=== PATIENT | male | born 1955 | race African-American/Black ===

== ENCOUNTER 2021-06-12 16:31 | Emergency (ER) | payer MEDICAID ==
--- NOTE | 2021-06-12 18:16 | ED Physician Documentation ---
PD HPI HEADACHE - Stated complaint Stated Complaint: DIZZY/HEAD PX - Chief complaint Chief Complaint: General - History obtained from History obtained from: Patient - History of Present Illness Timing - onset: How many days ago (few) Timing - onset during: Light activity Timing - duration: Days (has been out of meds for a week or so and has noted some pressure headache c/w high BP. He was [place] able [place]. Here for eval Tried calling local clinic but no appts until few weeks.) Timing - details: Gradual onset, Waxing and waning Worst headache ever?: No: Worst headache ever? Location: Front, Global Quality: Throbbing Associated symptoms: No: Fever, Stiff neck, Nausea, Vomiting, Weakness, Numbness, Eye pain Contributing factors: Hypertension (ran out of meds a week ago). No: Recent illness Similar symptoms before: Diagnosis (HTN) Recently seen: Clinic (few months ago - recently moved to located within [facility]) Review of Systems Constitutional: denies: Fever, Chills Eyes: denies: Loss of vision, Decreased vision Nose: denies: Rhinorrhea / runny nose, Congestion Throat: denies: Sore throat Cardiac: denies: Chest pain / pressure Respiratory: denies: Dyspnea, Cough Neurologic: reports: Headache. denies: Focal weakness, Numbness, Confused, Altered mental status PD PAST MEDICAL HISTORY - Past Medical History Cardiovascular: Hypertension Respiratory: None Neuro: None Endocrine/Autoimmune: None - Present Medications Home Medications: Ambulatory Orders Medication Instructions Recorded Confirmed Losartan [Cozaar] 50 mg PO DAILY #30 tablet 06/12/21 Losartan [Cozaar] mg PO DAILY 06/12/21 amLODIPine [Norvasc] 10 mg PO DAILY #30 tablet 06/12/21 amLODIPine [Norvasc] mg PO DAILY 06/12/21 - Allergies Allergies/Adverse Reactions: Allergies Allergy/AdvReac Type Severity Reaction Status Date / Time No Known Drug Allergies Allergy Verified 06/12/21 16:37 PD ED PE NORMAL - Vitals Vital signs reviewed: Yes - General General: Alert and oriented X 3, No acute distress, Well developed/nourished - Cardiac Cardiac: RRR, No murmur - Respiratory Respiratory: Clear bilaterally - Derm Derm: Normal color, Warm and dry - Extremities Extremities: No edema, No calf tenderness / cord - Neuro Neuro: Alert and oriented X 3, No motor deficit, Normal speech Results - Vitals Vitals: Oxygen O2 Source Room air PD MEDICAL DECISION MAKING - ED course Complexity details: reviewed results (was going to check basic chemistry/renal function, but patient says had labs few months ago and "hates needles", so shared decision to forego. I presume new PMD will want basic labs in the next month or so anyway. ), considered differential (mild pressure headache that he relates to BP being elevated.), d/w patient Departure - Departure Disposition: Home, Self Care Clinical Impression: Headache, Hypertension, No mechanism for timely refill of medication Condition: Stable Record reviewed to determine appropriate education?: Yes Instructions: ED HTN Established Prescriptions: Losartan [Cozaar] 50 mg PO DAILY #30 tablet amLODIPine [Norvasc] 10 mg PO DAILY #30 tablet Comments: Stay well-hydrated. Low-salt diet. Tylenol if needed for headaches. Resume your usual blood pressure medicines of losartan and amlodipine. Follow- up with the new primary care in June as scheduled. Return if needed. Discharge Date/Time: 06/12/21 19:05
[2021-06-12] MEDS ORDERED: amLODIPine 5 MG TABLET PO STA (18:43)
[2021-06-12] MEDS ORDERED: ACETAMINOPHEN 325 MG TABLET PO STA (18:43)
[2021-06-12] MEDS ORDERED: LOSARTAN 50 MG TABLET PO STA (18:55)
[2021-06-12 19:03] VITALS: BP 166/95
[2021-06-13] MEDS ORDERED: LOSARTAN 50 MG TABLET PO SCH (09:00)
== END 2021-06-12 19:05 | disposition home or self-care (01) ==
LOC: ED 16:31
DX: R51.9 Headache, unspecified (principal); I10 Essential (primary) hypertension; T50.996A Underdosing of other drugs, medicaments and biological substances, initial encounter; Z91.138 Patient's unintentional underdosing of medication regimen for other reason
CPT/HCPCS: 99282; 99283; A9270; 80053; 83690

== ENCOUNTER 2021-11-20 10:20 | Outpatient (CLI) | payer MEDICAID ==
[2021-11-20 15:12] LABS: EOSINOPHILS # (AUTO) 0.1 10^3/uL (0.0-0.7); EOSINOPHILS % (AUTO) 3.5 %; HGB - HEMOGLOBIN 15.7 g/dL (14.0-18.0); LYMPHOCYTES # (AUTO) 1.6 10^3/uL (1.5-3.5); MEAN CORPUSCULAR HEMOGLOBIN 27.7 pg (27.0-31.0); MEAN CORPUSCULAR HGB CONC 34.9 g/dL (32.0-36.0); MEAN CORPUSCULAR VOLUME 79.4 fL (80.0-94.0); MEAN PLATELET VOLUME 10.5 fL (7.4-11.4); MONOCYTES # (AUTO) 0.3 10^3/uL (0.0-1.0); MONOCYTES % (AUTO) 8.1 %; NEUTROPHILS # (AUTO) 1.9 10^3/uL (1.5-6.6); NEUTROPHILS % (AUTO) 48.1 %; PLT - PLATELET COUNT 190 10^3/uL (130-450); RED BLOOD COUNT 5.67 10^6/uL (4.70-6.10); RED CELL DISTRIBUTION WIDTH 13.3 % (12.0-15.0)
[2021-11-20 15:42] LABS: ALBUMIN 3.9 g/dL (3.2-5.5); ALBUMIN/GLOBULIN RATIO 1.1 (1.0-2.2); ALKALINE PHOSPHATASE 52 IU/L (42-121); ALT ALANINE AMINOTRANSFERASE 14 IU/L (10-60); AST ASPARTATE AMINOTRANSFERASE 18 IU/L (10-42); BUN - BLOOD UREA NITROGEN 18 mg/dL (6-20); CARBON DIOXIDE - CO2 27 mmol/L (21-32); CHLORIDE 102 mmol/L (101-111); CHOL/HDL RATIO 3.1 (<5.0); CHOLESTEROL 168 mg/dL; CREATININE 1.3 mg/dL (0.6-1.2); GFR - MDRD 67 (>89); GLUCOSE 103 mg/dL (70-100); HDL CHOLESTEROL 55 mg/dL; LDL CHOLESTEROL,CALCULATED 96 mg/dL; LDL/HDL RATIO 1.7 (<3.6); POTASSIUM 3.5 mmol/L (3.5-5.0); SODIUM 139 mmol/L (135-145); TOTAL PROTEIN 7.3 g/dL (6.7-8.2); TRIGLYCERIDES 86 mg/dL; VLDL CHOLESTEROL 17 mg/dL
[2021-11-20 15:43] LABS: FECAL OCCULT BLOOD (FIT) NEGATIVE (NEGATIVE)
[2021-11-20 16:20] LABS: THYROID STIMULATING HORMONE 3.11 uIU/mL (0.34-5.60)
== END 2021-11-20 10:21 | disposition home or self-care (01) ==
LOC: LAB.S 10:20
PROVIDERS: ATTEND Registered Nurse
DX: K21.9 Gastro-esophageal reflux disease without esophagitis (principal); R13.10 Dysphagia, unspecified; I10 Essential (primary) hypertension; Z12.11 Encounter for screening for malignant neoplasm of colon; Z12.5 Encounter for screening for malignant neoplasm of prostate
CPT/HCPCS: 36415; 80053; 80061; 82274; 83721; 84153; 84443; 85025

== ENCOUNTER 2022-02-14 09:12 | Outpatient (CLI) | payer MEDICARE, MEDICAID ==
--- NOTE | 2022-02-14 10:11 | Ultrasound Report ---
PROCEDURE: Aorta Screening INDICATIONS: HIST OF SMOKING TECHNIQUE: Real time scanning was performed of the aorta and iliac arteries, with image documentatio n. COMPARISON: None FINDINGS: Aorta: Proximal aortic diameter measures 2.2 x 2.2 cm. Mid-aorta measures 2.1 x 2.3 cm. Distal aor tic diameter is 1.8 x 1.9 cm. Iliac arteries: Right common iliac artery measures 1.3 x 1.4 cm. Left common iliac artery measures 1.4 x 1.4 cm. IMPRESSION: No abdominal aortic aneurysm. Reviewed by: Eduardo Montana MD on 02/14/2022 10:10 AM PDT Approved by: Eduardo Montana MD on 02/14/2022 10:10 AM PDT Station ID: [id number]
== END 2022-02-14 09:13 | disposition home or self-care (01) ==
LOC: DI 09:12
PROVIDERS: ATTEND Registered Nurse
DX: Z13.6 Encounter for screening for cardiovascular disorders (principal); Z87.891 Personal history of nicotine dependence

== ENCOUNTER 2022-06-23 09:34 | Day surgery (SDC) | payer MEDICARE, MEDICAID ==
[2022-06-23] MEDS ORDERED: ONDANSETRON 4 MG/2 ML VIAL IVP STA (10:40)
[2022-06-23] MEDS ORDERED: SODIUM CHLORIDE 0.9% 1,000 ML IV STA ×2 (10:40→19:10)
[2022-06-23 10:55] LABS: EOSINOPHILS # (AUTO) 0.1 10^3/uL (0.0-0.7); EOSINOPHILS % (AUTO) 3.2 %; HCT - HEMATOCRIT 42.8 % (42.0-52.0); HGB - HEMOGLOBIN 14.9 g/dL (14.0-18.0); LYMPHOCYTES # (AUTO) 0.9 10^3/uL (1.5-3.5); LYMPHOCYTES % (AUTO) 28.3 %; MEAN CORPUSCULAR HEMOGLOBIN 28.2 pg (27.0-31.0); MEAN CORPUSCULAR HGB CONC 34.8 g/dL (32.0-36.0); MEAN CORPUSCULAR VOLUME 81.1 fL (80.0-94.0); MONOCYTES # (AUTO) 0.3 10^3/uL (0.0-1.0); MONOCYTES % (AUTO) 10.2 %; NEUTROPHILS # (AUTO) 1.8 10^3/uL (1.5-6.6); PLT - PLATELET COUNT 169 10^3/uL (130-450); RED BLOOD COUNT 5.28 10^6/uL (4.70-6.10); RED CELL DISTRIBUTION WIDTH 13.2 % (12.0-15.0); WHITE BLOOD COUNT 3.2 x10^3/uL (4.8-10.8)
[2022-06-23 11:08] LABS: ALBUMIN 3.9 g/dL (3.2-5.5); ALBUMIN/GLOBULIN RATIO 1.3 (1.0-2.2); BILIRUBIN,TOTAL 0.9 mg/dL (0.2-1.0); CALCIUM 9.3 mg/dL (8.5-10.3); CREATININE 1.2 mg/dL (0.6-1.2); POTASSIUM 3.5 mmol/L (3.5-5.0); TOTAL PROTEIN 6.8 g/dL (6.7-8.2)
--- NOTE | 2022-06-23 12:16 | CT Report ---
PROCEDURE: CHEST W INDICATIONS: dysphagia/can't pass anything CONTRAST: IV CONTRAST: Optiray 320 ml: 100 PO CONTRAST: *NO PO CONTRAST TECHNIQUE: After the administration of intravenous contrast, 1 mm axial images were acquired from the pulmonary apices through the posterior costophrenic angles. Axial 5 mm soft tissue kernel reconstructions were performed as well as 8 mm axial MIP and coronal and sagittal 5 mm reformations. For radiation dose reduction, the following was used: automated exposure control, adjustment of mA and/or kV according to patient size. COMPARISON: CT abdomen pelvis 06/23/2022 FINDINGS: Image quality: Excellent. Lungs and pleura: No acute air space opacities. No pleural effusions or pneumothorax. Central and peripheral airways are patent and normal in caliber. Mediastinum: Heart size is normal. No pericardial effusion. No mediastinal or hilar adenopathy by size criteria. Thoracic aorta and central pulmonary arteries are normal in size. Esophagus is michael l in caliber. No hiatal hernia. Bones and chest wall: No suspicious bony lesions. No vertebral body compression fractures. No axil gay or supraclavicular adenopathy by size criteria. The thyroid is normal in size and there are no incidental findings.. Abdomen: Simple right renal cyst. Otherwise, visualized upper abdominal solid organs appear normal. Upper abdominal bowel loops are normal in caliber. IMPRESSION: No visualized esophageal mass. If concern persists, a endoscopy is recommended. CLINICAL RECOMMENDATION STATEMENTS: In patients <35 years with an ITN detected on CT, MRI, or extrathyroidal ultrasound, the Committee re commends further evaluation with dedicated thyroid ultrasound if the nodule is "e1 cm and has no susp icious imaging features, and if the patient has normal life expectancy. In patients "e35 years with an ITN detected on CT, MRI, or extrathyroidal ultrasound, the Committee r ecommends further evaluation with dedicated thyroid ultrasound if the nodule is "e1.5 cm and has no s uspicious imaging features, and if the patient has normal life expectancy. (ACR, 2014) Reviewed by: Ruth Encinas MD on 06/23/2022 12:15 PM PDT Approved by: Ruth Encinas MD on 06/23/2022 12:15 PM PDT Station ID: [id number]
--- NOTE | 2022-06-23 12:18 | CT Report ---
PROCEDURE: Abdomen/Pelvis W INDICATIONS: dysphagia/vomiting/can't pass food or water CONTRAST: IV CONTRAST: Optiray 320 ml: 100 PO CONTRAST: *NO PO CONTRAST TECHNIQUE: After the administration of intravenous contrast, 5 mm thick sections acquired from the diaphragms to the symphysis. 5 mm thick coronal and sagittal reformats were acquired. For radiation dose reducti on, the following was used: automated exposure control, adjustment of mA and/or kV according to sb ent size. COMPARISON: CT chest 06/23/2022. FINDINGS: Image quality: Excellent. ABDOMEN: Lung bases: Lung bases are clear. Heart size is normal. Solid organs: Liver and spleen are normal in size and enhancement. Hepatic steatosis. Gallbladder i s unremarkable. Biliary system is non dilated. Pancreas enhances normally. 3 mm calcified nodule wi thin the medial right adrenal gland. Kidneys demonstrate normal size and enhancement, without hydrone phrosis. Simple right renal cyst. Peritoneum and bowel: Bowel loops demonstrate normal wall thickness and caliber. No free fluid or a ir. Nodes and vessels: No retroperitoneal or mesenteric adenopathy by size criteria. Aorta and inferior vena cava are normal in size. Miscellaneous: No ventral hernias. PELVIS: Genitourinary: Bladder wall thickness is normal. Miscellaneous: No inguinal hernias or adenopathy. Bones: No suspicious bony lesions. No vertebral body compression fractures. IMPRESSION: No visualized esophageal mass. No obstruction. Reviewed by: Ruth Encinas MD on 06/23/2022 12:17 PM PDT Approved by: Ruth Encinas MD on 06/23/2022 12:17 PM PDT Station ID: [id number]
--- NOTE | 2022-06-23 13:35 | ED Physician Documentation ---
PD HPI ABD PAIN - Stated complaint Stated Complaint: UNABLE TO SWALLO - Chief complaint Chief Complaint: Abd Pain - History obtained from History obtained from: Patient - Additional information Additional information: The patient comes to the emergency department chief complaint of inability to pass food or liquids by mouth over the past month. The patient initially just had delayed passage of solids and liquids and would have some discomfort in his lower chest but for like things ultimately passed through. However, this is gotten increasingly difficult until now, the patient states for the past 3 days he cannot get any food or fluid down. He states he gets a strong cramping discomfort in his lower central chest and then everything comes right back out. He states that he has been becoming weaker and has lost "a lot" of weight over the last month though he is not sure exactly how much. He states this is because he has hardly been able to eat anything. The patient states that he was otherwise the same way as usual before this started. He denies any vomiting in between attempts to eat or drink. He denies any history of heavy, regular drinking of alcohol and denies smoking. He states that he has not had any black stools or blood in his vomit. No other complaints at this time. Review of Systems Ten Systems: 10 systems reviewed and negative Constitutional: reports: Reviewed and negative Eyes: reports: Reviewed and negative Ears: reports: Reviewed and negative Nose: reports: Reviewed and negative Throat: reports: Reviewed and negative Cardiac: reports: Chest pain / pressure Respiratory: reports: Reviewed and negative GI: reports: Vomiting, Reviewed and negative : reports: Reviewed and negative Skin: reports: Reviewed and negative Musculoskeletal: reports: Reviewed and negative Neurologic: reports: Reviewed and negative Psychiatric: reports: Reviewed and negative Endocrine: reports: Reviewed and negative Immunocompromised: reports: Reviewed and negative PD PAST MEDICAL HISTORY - Past Medical History Cardiovascular: Hypertension Respiratory: None Neuro: None Endocrine/Autoimmune: None GI: GERD : Other HEENT: None Psych: None Musculoskeletal: None Derm: None - Past Surgical History Past Surgical History: Yes - Present Medications Home Medications: Ambulatory Orders Medication Instructions Recorded Confirmed Losartan [Cozaar] 50 mg PO DAILY #30 tablet 06/12/21 Losartan [Cozaar] mg PO DAILY 06/12/21 amLODIPine [Norvasc] 10 mg PO DAILY #30 tablet 06/12/21 amLODIPine [Norvasc] mg PO DAILY 06/12/21 - Allergies Allergies/Adverse Reactions: Allergies Allergy/AdvReac Type Severity Reaction Status Date / Time No Known Drug Allergies Allergy Verified 06/23/22 09:49 - Social History Does the pt smoke?: No Smoking Status: Never smoker Does the pt drink ETOH?: Yes Does the pt have substance abuse?: No - Immunizations Immunizations are current?: Yes PD ED PE NORMAL - Vitals Vital signs reviewed: Yes - General General: Alert and oriented X 3, No acute distress, Well developed/nourished - HEENT HEENT: Atraumatic, PERRL, EOMI, Moist mucous membranes - Neck Neck: Supple, no meningeal sign - Cardiac Cardiac: RRR, No murmur, Strong equal pulses - Respiratory Respiratory: No respiratory distress, Clear bilaterally - Abdomen Abdomen: Soft, Non distended, Other (Mild epigastric tenderness, no rebound or guarding) - Derm Derm: Normal color, Warm and dry, No rash - Extremities Extremities: No deformity, No edema - Neuro Neuro: Alert and oriented X 3 - Psych Psych: Normal mood, Normal affect Results - Vitals Vitals: Vital Signs - 24 hr 06/24/22 06/24/22 06/24/22 11:18 13:00 15:00 Temperature Heart Rate 55 L 56 L 56 L Respiratory 14 16 18 Rate Blood Pressure 145/89 H 135/86 H 142/87 H O2 Saturation 100 100 100 06/24/22 06/24/22 06/24/22 17:00 19:00 20:16 Temperature Heart Rate 48 L 70 58 L Respiratory 18 16 11 L Rate Blood Pressure 165/85 H 116/79 150/82 H O2 Saturation 100 99 100 06/24/22 06/24/22 06/24/22 21:00 22:00 23:00 Temperature 36.6 C Heart Rate 56 L 50 L 55 L Respiratory 14 14 14 Rate Blood Pressure 143/86 H 138/80 H 145/84 H O2 Saturation 100 98 99 06/25/22 06/25/22 06/25/22 01:00 03:00 05:00 Temperature 36.6 C Heart Rate 61 59 L 61 Respiratory 16 18 16 Rate Blood Pressure 149/84 H 146/87 H 147/86 H O2 Saturation 99 100 100 Oxygen O2 Source Room air - Labs Labs: Laboratory Tests 09/04/22 09/04/22 09/04/22 10:50 10:50 14:42 WBC 3.2 L RBC 5.28 Hgb 14.9 Hct 42.8 MCV 81.1 MCH 28.2 MCHC 34.8 RDW 13.2 Plt Count 169 MPV 10.0 Neut # (Auto) 1.8 Lymph # (Auto) 0.9 L Bullock # (Auto) 0.3 Eos # (Auto) 0.1 Baso # (Auto) 0.0 Absolute Nucleated RBC 0.00 Nucleated RBC % 0.0 Sodium 142 Potassium 3.5 Chloride 107 Carbon Dioxide 26 Anion Gap 9.0 BUN 19 Creatinine 1.2 Estimated GFR (MDRD) 73 L Glucose 90 Calcium 9.3 Magnesium Total Bilirubin 0.9 AST 17 ALT 13 Alkaline Phosphatase 49 Total Protein 6.8 Albumin 3.9 Globulin 2.9 Albumin/Globulin Ratio 1.3 Lipase 28 TSH Nasal Adenovirus (PCR) NOT DETECTED Nasal B. parapertussis DNA (PCR) NOT DETECTED Nasal Coronavir 229E PCR NOT DETECTED Nasal Coronavir HKU1 PCR NOT DETECTED Nasal Coronavir NL63 PCR NOT DETECTED Nasal Coronavir OC43 PCR NOT DETECTED Nasal Enterovir/Rhinovir PCR NOT DETECTED Nasal Influenza B PCR NOT DETECTED Nasal Influenza A PCR NOT DETECTED Nasal Parainfluen 1 PCR NOT DETECTED Nasal Parainfluen 2 PCR NOT DETECTED Nasal Parainfluen 3 PCR NOT DETECTED Nasal Parainfluen 4 PCR NOT DETECTED Nasal RSV (PCR) NOT DETECTED Nasal B.pertussis DNA PCR NOT DETECTED Nasal C.pneumoniae (PCR) NOT DETECTED Brice Human Metapneumo PCR NOT DETECTED Nasal M.pneumoniae (PCR) NOT DETECTED Nasal SARS-CoV-2 (PCR) NOT DETECTED 06/24/22 06/24/22 08:46 08:46 WBC RBC Hgb Hct MCV MCH MCHC RDW Plt Count MPV Neut # (Auto) Lymph # (Auto) Bullock # (Auto) Eos # (Auto) Baso # (Auto) Absolute Nucleated RBC Nucleated RBC % Sodium 143 Potassium 3.3 L Chloride 109 Carbon Dioxide 26 Anion Gap 8.0 BUN 18 Creatinine 1.2 Estimated GFR (MDRD) 73 L Glucose 81 Calcium 8.5 Magnesium 1.9 Total Bilirubin AST ALT Alkaline Phosphatase Total Protein Albumin Globulin Albumin/Globulin Ratio Lipase TSH 1.15 Nasal Adenovirus (PCR) Nasal B. parapertussis DNA (PCR) Nasal Coronavir 229E PCR Nasal Coronavir HKU1 PCR Nasal Coronavir NL63 PCR Nasal Coronavir OC43 PCR Nasal Enterovir/Rhinovir PCR Nasal Influenza B PCR Nasal Influenza A PCR Nasal Parainfluen 1 PCR Nasal Parainfluen 2 PCR Nasal Parainfluen 3 PCR Nasal Parainfluen 4 PCR Nasal RSV (PCR) Nasal B.pertussis DNA PCR Nasal C.pneumoniae (PCR) Brice Human Metapneumo PCR Nasal M.pneumoniae (PCR) Nasal SARS-CoV-2 (PCR) - Rads (name of study) CT chest Radiology: Final report received, EMP read indepedently, See rad report (No acute finding) CT abdomen pelvis Radiology: Final report received, EMP read indepedently, See rad report (No acute findings) PD MEDICAL DECISION MAKING - ED course Complexity details: reviewed results, re-evaluated patient, considered differential, d/w patient ED course: The patient was worked up with laboratory studies which were unremarkable. CT scans of the chest abdomen and pelvis were also unremarkable. I did try a p.o. challenge with clear liquid in the emergency department and the patient within seconds of swallowing was regurgitating the same liquid back up in its entirety. I spoke with Dr. Aguayo of surgery to see if it would be possible to work this patient up here and he stated he could and would be willing to do an endoscopy and a G-tube if needed. Of course, swallow study would also need to be done as per this patient's work-up. I then spoke with Dr. Washington who was hospitalist on duty and she stated that the patient did not meet admission criteria because he did not have any vital sign abnormalities and could simply be sent home with an NG tube and instructed as to how to hydrate and feed himself with liquid solutions. She stated we do not have the capability for swallow study because we do not have a C arm. We also do not have a speech pathologist here which creates also a less ideal situation as far as swallow evaluation. At this point in time, the pt is in the ED, awaiting transfer, as discharge home for this pt who cannot eat or drink, and has no primary care or assistance at home is not appropriate. Likelihood of timely follow up for this patient as an outpatient in primary care, much less with a custodial services manager, is very low, as is likelihood of pt to manage tube feeds on his own at home with no support. He has been bolused with NS, then placed on maintenance fluids. NGT was placed, but very poorly tolerated by the pt, who was perpetually nauseated with the tube in place. As such, the tube has been removed at pt's request, since we are providing IV therapy. Pt is signed out to Dr. Mendes at change of shift, pending acceptance at a facility with higher level of care. 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
--- NOTE | 2022-06-23 15:30 | XRAY Report ---
PROCEDURE: Chest 1 View X-Ray INDICATIONS: confirm NGT placement TECHNIQUE: One view of the chest was acquired. COMPARISON: Chest x-ray 06/23/2022 FINDINGS: Surgical changes and devices: Nasogastric tube is present projecting below the left hemidiaphragm. Lungs and pleura: No pleural effusions or pneumothorax. Lungs are clear. Mediastinum: Mediastinal contours appear normal. Heart size is normal. Bones and chest wall: No suspicious bony lesions. Overlying soft tissues appear unremarkable. IMPRESSION: Nasogastric tube as above. Reviewed by: Ruth Encinas MD on 06/23/2022 3:29 PM PDT Approved by: Ruth Encinas MD on 06/23/2022 3:29 PM PDT Station ID: [id number]
[2022-06-23 15:41] LABS: B. PARAPERTUSSIS- RESP PCR PAN NOT DETECTED; B. PERTUSSIS- RESP PCR PANEL NOT DETECTED; C. PNEUMONIAE- RESP PCR PANEL NOT DETECTED; CORONAVIRUS 229E-RESP PCR NOT DETECTED; CORONAVIRUS HKU1-RESP PCR NOT DETECTED; CORONAVIRUS NL63-RESP PCR NOT DETECTED; CORONAVIRUS OC43-RESP PCR NOT DETECTED; HUMAN METAPNEUMOVIRUS NOT DETECTED; INFLUENZA A- RESP PCR PANEL NOT DETECTED; INFLUENZA B - RESP PCR PANEL NOT DETECTED; M. PNEUMONIAE- RESP PCR PANEL NOT DETECTED; PARAINFLUENZA VIRUS 1 NOT DETECTED; PARAINFLUENZA VIRUS 2 NOT DETECTED; PARAINFLUENZA VIRUS 3 NOT DETECTED; PARAINFLUENZA VIRUS 4 NOT DETECTED; RHINOVIRUS/ENTEROVIRUS NOT DETECTED; RSV- RESP PCR PANEL NOT DETECTED; SARS-CoV-2 -RESP PCR PANEL NOT DETECTED
[2022-06-24] MEDS ORDERED: SODIUM CHLORIDE 0.9% 1,000 ML IV STA (03:07)
[2022-06-24] MEDS ORDERED: LACTATED RINGERS 1,000 ML IV STA ×2 (08:36→18:33)
[2022-06-24] MEDS ORDERED: PANTOPRAZOLE 40 MG VIAL IVP STA (08:36)
[2022-06-24 09:06] LABS: CALCIUM 8.5 mg/dL (8.5-10.3); CREATININE 1.2 mg/dL (0.6-1.2); MAGNESIUM 1.9 mg/dL (1.7-2.8); POTASSIUM 3.3 mmol/L (3.5-5.0)
[2022-06-24] MEDS ORDERED: SODIUM CHLORIDE FLUSH 0.9% 10 ML SYRINGE IVP PRN ×2 (14:44→15:31)
--- NOTE | 2022-06-24 15:00 | CONSULTATION NOTE ---
Referring Provider Name of Referring Provider:: Mark Consult Date: 06/24/22 Chief Complaint - Chief Complaint Chief Complaint: Inability to swallow History of Present Illness - Admitted From Admitted From:: ED - History Obtained From Records Reviewed: yes History obtained from: Patient Exam Limitations: None - History of Present Illness HPI Comment/Other: Merlin is a 67 year old male who has had progressive dysphagia for the last 6 weeks starting with solid food intolerance and progressing to the inability to swallow liquids over the last several days. He admits to a significant weight loss over this period. He denies chest or abdominal pain, but had a disturbing sensation of the failure of passage of weight he swallows into his stomach. On occasion he has regurgitated solid food and more recently, liquids that he attempted to swallow. He came to the ED yesterday and plans are in play for him to be transferred to another facility with the capacity to evaluate his symptoms with endoscopy and/or contrast x-ray. During his wait for an accepting facility (none have responded yet) he has been resting comfortably in the ED with hydration using an IV. He is able to swallow his secretions but nothing else. He has not aspirated. Merlin claims to have used Tums in the past for GERD but has never been evaluated for this disease process. He used to smoke cigarettes. There is no FH of GI problems in his family. This facility does not have the ability to perform an UGI x-ray this weekend. History - Past Medical History Cardiovascular: reports: Hypertension Respiratory: reports: None Neuro: reports: None Endocrine/Autoimmune: reports: None, Other (Weight loss) GI: reports: GERD, Other (Inability to swallow liquids) : reports: Other (Prostate Surgery) HEENT: reports: None Psych: reports: None Musculoskeletal: reports: None Derm: reports: None MRSA Hx?: No - Past Surgical History /BUSINESS ASST: reports: Other (Prostatectomy) - Family & Social History Family History: Other family: Alive and Well (Lives with daughter) Living arrangement: At home Living Situation: With family - Substance History Use: Uses substance without health or social issues: Tobacco, Cannabis Abuse: Recurrent use of substance despite neg consequences: NONE Dependence: Experiences withdrawal or developed tolerances: NONE Tobacco Details: Cigarettes - POLST Patient has POLST: No POLST Status: Full Code Meds/Allgy - Home Medications Home Medications: Ambulatory Orders Medication Instructions Recorded Confirmed Losartan [Cozaar] 50 mg PO DAILY #30 tablet 06/12/21 Losartan [Cozaar] mg PO DAILY 06/12/21 amLODIPine [Norvasc] 10 mg PO DAILY #30 tablet 06/12/21 amLODIPine [Norvasc] mg PO DAILY 06/12/21 - Allergies Allergies/Adverse Reactions: Allergies Allergy/AdvReac Type Severity Reaction Status Date / Time No Known Drug Allergies Allergy Verified 06/23/22 09:49 Review of Systems - Constitutional Constitutional: reports: Weakness, Weight loss - Gastrointestinal Gastrointestinal: reports: Nausea, Vomiting, Other (Inability to swallow liquids) Exam - Vital Signs Vital Signs: Vital Signs x48h Pulse Resp BP Pulse Ox 06/24/22 11:18 55 L 14 145/89 H 100 06/24/22 09:00 51 L 18 130/66 99 06/24/22 07:00 94 25 H 115/84 H 78 L - Physical Exam General Appearance: positive: No acute distress, Alert Eyes Bilateral: positive: Normal inspection ENT: positive: ENT inspection nml Neck: positive: Nml inspection, No JVD Respiratory: positive: Chest non-tender, No respiratory distress, Breath sounds nml Cardiovascular: positive: Regular rate & rhythm, No murmur Peripheral Pulses: positive: 2+ Abdomen: positive: Non-tender, No organomegaly, Nml bowel sounds, No distention Back: positive: Nml inspection Skin: positive: Color nml, No rash, Warm Extremities: positive: Non-tender, Full ROM, Nml appearance, No pedal edema Neurologic/Psychiatric: positive: Oriented x3 Conclusion/Plan - Lab Results Fish Bones: 06/23/22 10:50 06/24/22 08:46 - Other Other Results/Comments: Assessment: Progressive esophageal obstruction. Likely causes: GERD with stricture, esophageal malignancy: Achalasia and meat impaction less likely. Plan: Esophagoscopy under GETA with the intent to diagnose and potentially dilate the suspected esophageal narrowing. Merlin understands that this is not an emergency procedure and he can continue to wait for a receiving facility (he has already waited 24 hours) but he prefers to have me offer him the procedure this afternoon. CONSENT Merlin has been counseled for the procedure (upper endosocpy under anesthesia w ith the intent to diagnose and possibly resolve the esophageal obstruction), it's indications, inherent and material risks (including damage to the esophagus which may require transfer for sub-specialty care), benefits, and expected outcomes as well as alternative therapies. He understands that if we are unsuccessful in resolving the obstruction, that the transfer initiated yesterday will proceed as soon as a receiving facility becomes available. Merlin understands, agrees, and requests that we proceed with the procedure as outlined in our discussion.
--- NOTE | 2022-06-24 15:25 | PROVIDER PROGRESS NOTE ---
Subjective - Prog Note Date Prog Note Date: 06/24/22 - Subjective Subjective: I reviewed the CT scan of the chest and abdomen performed yesterday. The esophagus is not massively dilated as one would expect in achalasia but the distal esophagus at the hiatus has a thickened wall with a narrow lumen. I see no convincing evidence of an esophageal malignancy. Wade Bravo MD, FACS Objective - Vital Signs/Intake & Output Vital Signs: Vital Signs x48h Pulse Resp BP Pulse Ox 06/24/22 11:18 55 L 14 145/89 H 100 06/24/22 09:00 51 L 18 130/66 99 Intake & Output: Intake & Output 06/21/22 06/22/22 06/23/22 06/24/22 23:59 23:59 23:59 23:59 Intake Total 1000 1999 Balance 1000 1999 - Lab Results Fish Bones: 06/23/22 10:50 06/24/22 08:46 Other Labs: Lab Results x24hrs 06/24/22 06/24/22 06/23/22 Range/Units 08:46 08:46 14:42 Sodium 143 (135-145) mmol/L Potassium 3.3 L (3.5-5.0) mmol/L Chloride 109 (101-111) mmol/L Carbon Dioxide 26 (21-32) mmol/L Anion Gap 8.0 (6-13) BUN 18 (6-20) mg/dL Creatinine 1.2 (0.6-1.2) mg/dL Estimated GFR (MDRD) 73 L (>89) Glucose 81 (70-100) mg/dL Calcium 8.5 (8.5-10.3) mg/dL Magnesium 1.9 (1.7-2.8) mg/dL TSH 1.15 (0.34-5.60) uIU/mL Nasal Adenovirus (PCR) NOT DETECTED Nasal B. parapertussis DNA (PCR) NOT DETECTED Nasal Coronavir 229E PCR NOT DETECTED Nasal Coronavir HKU1 PCR NOT DETECTED Nasal Coronavir NL63 PCR NOT DETECTED Nasal Coronavir OC43 PCR NOT DETECTED Nasal Enterovir/Rhinovir PCR NOT DETECTED Nasal Influenza B PCR NOT DETECTED Nasal Influenza A PCR NOT DETECTED Nasal Parainfluen 1 PCR NOT DETECTED Nasal Parainfluen 2 PCR NOT DETECTED Nasal Parainfluen 3 PCR NOT DETECTED Nasal Parainfluen 4 PCR NOT DETECTED Nasal RSV (PCR) NOT DETECTED Nasal B.pertussis DNA PCR NOT DETECTED Nasal C.pneumoniae (PCR) NOT DETECTED Brice Human Metapneumo PCR NOT DETECTED Nasal M.pneumoniae (PCR) NOT DETECTED Nasal SARS-CoV-2 (PCR) NOT DETECTED
--- NOTE | 2022-06-24 15:27 | ANESTHESIA ---
Pre-Anesthesia VS, & Labs - Diagnosis dysphagia - Procedure EGD Vital Signs: Temp Pulse Resp BP Pulse Ox 36.0 C L 55 L 14 145/89 H 100 06/23/22 09:43 06/24/22 11:18 06/24/22 11:18 06/24/22 11:18 06/24/22 11:18 Height: 6 ft 2 in Weight (kg): 90 kg Body Mass Index: 25.4 BMI Classification: Overweight - NPO >8 hours - Lab Results Current Lab Results: Laboratory Tests 06/24/22 08:46: TSH 1.15 06/24/22 08:46: Sodium 143, Potassium 3.3 L, Chloride 109, Carbon Dioxide 26, Anion Gap 8.0, BUN 18, Creatinine 1.2, Estimated GFR (MDRD) 73 L, Glucose 81, Calcium 8.5, Magnesium 1.9 06/23/22 10:50: Sodium 142, Potassium 3.5, Chloride 107, Carbon Dioxide 26, Anion Gap 9.0, BUN 19, Creatinine 1.2, Estimated GFR (MDRD) 73 L, Glucose 90, Calcium 9.3, Total Bilirubin 0.9, AST 17, ALT 13, Alkaline Phosphatase 49, Total Protein 6.8, Albumin 3.9, Globulin 2.9, Albumin/Globulin Ratio 1.3, Lipase 28 06/23/22 10:50: WBC 3.2 L, RBC 5.28, Hgb 14.9, Hct 42.8, MCV 81.1, MCH 28.2, MCHC 34.8, RDW 13.2, Plt Count 169, MPV 10.0, Neut # (Auto) 1.8, Lymph # (Auto) 0.9 L, [place] # (Auto) 0.3, Eos # (Auto) 0.1, Baso # (Auto) 0.0, Absolute Nucleated RBC 0.00, Nucleated RBC % 0.0 Fish Bones: 06/23/22 10:50 06/24/22 08:46 Home Medications and Allergies Active Medications Lactated Ringer's (Lr) 1,000 mls @ 125 mls/hr IV .Q8H STA Stop: 06/24/22 16:35 Last Admin: 06/24/22 09:09 Dose: 125 mls/hr Sodium Chloride (Normal Saline 0.9%) 1,000 mls @ 100 mls/hr IV .Q10H JAVON Sodium Chloride (Sodium Chloride Flush 0.9% 10 Ml Syringe) 10 ml IVP 0100,0900,1700 JAVON Sodium Chloride (Sodium Chloride Flush 0.9% 10 Ml Syringe) 10 ml IVP PRN PRN PRN Reason: NEEDED PER PROVIDER ORDERS Losartan [Cozaar] mg PO DAILY 06/12/21 amLODIPine [Norvasc] mg PO DAILY 06/12/21 Allergies/Adverse Reactions: Allergies Allergy/AdvReac Type Severity Reaction Status Date / Time No Known Drug Allergies Allergy Verified 06/23/22 09:49 Anes History & Medical History - Anesthetic History Anesthesia Complications: reports: No previous complications - Medical History Cardiovascular: reports: Hypertension Pulmonary: reports: None Gastrointestinal: reports: GERD, Other (Inability to swallow liquids) Urinary: reports: Other (Prostate Surgery) Neuro: reports: None Musculoskeletal: reports: None Endocrine/Autoimmune: reports: None, Other (Weight loss) Blood Disorders: reports: None Skin: reports: None Smoking Status: Never smoker Psychosocial: reports: Alcohol (1-2 times per week), Cannabis (frequent) History of Cancer?: No - Surgical History Urologic: reports: Prostatic surgery Gynecologic: reports: Other (Prostatectomy) Exam General: Alert, Oriented x3, Cooperative, No acute distress Dental: Dentures full Upper Mouth Openin Fingerbreadth Neck Mobility: Normal Mallampati classification: II Thyromental Distance: 4-6 cm Mental/Cognitive Status: Alert/Oriented X3, Normal for patient Plan Anesthesia Type: General, Total IV Consent for Procedure(s) Verified and Reviewed: Yes Code Status: Attempt Resuscitation ASA classification: 2-Mild systemic disease Is this case an emergency?: Yes
[2022-06-24] MEDS ORDERED: MIDAZOLAM 2 MG/2 ML VIAL ONE (15:28)
[2022-06-24] MEDS ORDERED: PROPOFOL 500 MG/50 ML 500 MG/50 ML VIAL ONE (15:28)
--- NOTE | 2022-06-24 15:45 | ED Physician Documentation ---
ED Addendum - Addendum Addendum: 06/24/22 15:41The patient was resting this morning. He had asked for attempting some sips of water or ice chips. He got parts of sips down in a couple of ice chips and had to spit back up the water. He is not spitting up phlegm however. Review of the prior chart and talking with him this morning agrees with the prior history of progressive trouble swallowing initially food or solids and then even liquids over the last month with a lower substernal discomfort as he eats. It would improve at times but then became worse with having to vomit back up what he had just eaten. The last 3 days he has been able to even take small amounts of fluid. Evaluation yesterday was with the thought of getting swallow study and barium swallow which were unable to get here. Surgery was consulted with the thought of an EGD but there was concern about potentially needing dilation or biopsies or such. The patient was to try to get transferred for higher level of care. At the time of discussion with the patient earlier, there was no openings for beds available in the surrounding hospitals. I talked with the surgeon on-call today who states it would be reasonable in that setting to perform an EGD and see if there is something that is dilatable or biopsy able. He would be able to do both of those. The patient will be taken to the OR for upper endoscopy and presume return back here to the ER with the information and results. Just as the patient was about to go to our OR for EGD, there was a call from [facility] that they may be have beds available later today. However they were looking at neurology service with the idea of being more strokelike troubles with swallowing. I conveyed that it sounded more GI difficulty. The transfer center was going to regroup and try to contact the GI rather than neurology. However they would keep the transfer open after the results of our EGD here and if still needed transfer then they would see if they have final beds available at that point.
--- NOTE | 2022-06-24 16:29 | OPERATIVE REPORT ---
Operative Report - Other Other Information/Narrative: PROCEDURE DATE: 06/24/2022 SURGEON: Wade Barvo MD, FACS PREOPERATIVE DIAGNOSIS: Merlin is a 67-year-old male whom I am asked to perform upper endoscopy upon for suspected distal esophageal obstruction. He has had a 6-week period of progressive dysphagia for solid food increasing to inability to swallow liquids over the last several days. He sought medical attention in our emergency room yesterday and plans were made for transfer to a referral center. He continues to await the name of a receiving facility. As I started my call week today and have the ability to perform diagnostic endoscopy with possible therapeutic dilation, I offered the procedure to the patient this afternoon. 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 Suspect malignancy. NAME OF PROCEDURE: Esophagoscopy with biopsy of the distal esophageal neoplasm. ANESTHESIA: IV sedation DESCRIPTION OF PROCEDURE FOLLOWS: After consent for the procedure was obtained, the patient was brought to the operating room where, in the supine pos ition IV sedation was administered. The patient was placed into the left lateral decubitus position with the head of the bed raised. The throat was anesthetized with Cetacaine. An Olympus upper endoscope was gently inserted into the esophagus and the examination was begun. The esophageal mucosa was normal in it's upper and middle third. There was no dilation or mucosal abnormality. At 38-40 cm from the incisors was a friable, exophytic neoplastic lesion that involved 50-60 percent of the circumference of the lower esophagus. I was able to pass the endoscope within the lumen alongside the tumor and visualize the gastroesophageal junction but the lumen tapered to only a mm or so in diameter. As this facility has no wire guided dilators and no small diameter Fernandes dilators, I decided that any attempt at dilation was frought with a very high risk of perforation and made no attempt to relieve the obstruction. The endoscope was brought back into the lower esophagus and multiple small fragments of the tumor were taken with the cold biopsy forcep. The endoscope was removed from the esophagus and air and liquid was aspirated. The endoscope was removed. The patient tolerated the procedure well. ASSESSMENT: Distal esophageal obstruction due to suspected malignancy. The patient was not able to be dilated today and will require multimodality specialty care (Thoracic surgery, Oncology, Radiation Therapy, Nutritional Support) to manage this process. RECOMMENDATION: The patient will return to the ED, IV fluids and PPI will continue. Attempts to transfer the patient to the appropriate facility will continue. I discussed the findings with his daughter, Aundrea ([phone]) who will be in later to see her father.
[2022-06-24] MEDS ORDERED: SODIUM CHLORIDE FLUSH 0.9% 10 ML SYRINGE IVP SCH (17:00)
--- NOTE | 2022-06-24 18:28 | ANESTHESIA POST OP EVALUATION ---
Anesthesia Post Eval - Post Anesthesia Eval Vitals: Last Vital Signs Temp 36.0 C L 06/23/22 09:43 Pulse 48 L 06/24/22 17:00 Resp 18 06/24/22 17:00 BP 165/85 H 06/24/22 17:00 Pulse Ox 100 06/24/22 17:00 CV Function Including HR & BP: Stable Pain Control: Satisfactory Nausea & Vomiting: Negative Mental Status: Patient Participates Respiratory Status: Airway Patent Hydration Status: Satisfactory Anesthesia Complications: None
[2022-06-24] MEDS ORDERED: POTASSIUM CHLOR 10 MEQ/100 ML 10 MEQ/100 ML BAG IV STA (18:34)
[2022-06-24] MEDS: SODIUM CHLORIDE 0.9% 1,000 ML IV SCH (19:15)
[2022-06-24] MEDS: SODIUM CHLORIDE FLUSH 0.9% 10 ML SYRINGE IVP SCH (19:40)
[2022-06-24] MEDS ORDERED: PANTOPRAZOLE 40 MG VIAL IVP SCH (21:00)
[2022-06-25] MEDS: SODIUM CHLORIDE 0.9% 1,000 ML IV SCH (01:04)
[2022-06-25] MEDS: SODIUM CHLORIDE FLUSH 0.9% 10 ML SYRINGE IVP SCH (01:04)
[2022-06-25 05:30] VITALS: BP 147/86
--- NOTE | 2022-07-28 23:06 | ED Physician Documentation ---
ED Addendum - Addendum Addendum: 07/28/22 23:05 Patient received a signout from off going physician, please see their d ocumentation for further detail. Patient monitored carefully throughout the entirety of my shift. No acute issues noted. Will be signing out to the oncoming physician, please see their documentation for further detail.
== END 2022-06-25 06:00 | disposition home or self-care (01) ==
LOC: ED 09:34 → SDS 14:47 → ED 06-24 16:15 → SDS 06-25 06:00
PROVIDERS: ATTEND Surgery
PROC: 0DB38ZX Excision of Lower Esophagus, Via Natural or Artificial Opening Endoscopic, Diagnostic (ICD-10-PCS; principal; 2022-06-24 15:15)
DX: D49.0 Neoplasm of unspecified behavior of digestive system (principal); K22.70 Barrett's esophagus without dysplasia; R63.4 Abnormal weight loss; Z68.25 Body mass index [BMI] 25.0-25.9, adult; K21.9 Gastro-esophageal reflux disease without esophagitis; I10 Essential (primary) hypertension; Z87.891 Personal history of nicotine dependence; Z90.79 Acquired absence of other genital organ(s); R53.1 Weakness; E86.0 Dehydration; Z20.822 Contact with and (suspected) exposure to COVID-19
CPT/HCPCS: 36415; 43202; 71045; 71260; 74177; 80048; 80053; 83690; 83735; 84443; 85025; 87633; 96361; 96374; 99285; J7120; Q9967

== ENCOUNTER 2022-12-17 14:02 | Outpatient (CLI) | payer MEDICARE, MEDICAID ==
--- NOTE | 2022-12-17 16:24 | XRAY Report ---
PROCEDURE: Shoulder 3 View LT INDICATIONS: IMPINGEMENT SYNDROME OF LEFT SHOULDER TECHNIQUE: 3 views of the shoulder were acquired. COMPARISON: None. FINDINGS: Bones: No fractures or dislocations. Mild to moderate acromioclavicular joint osteoarthritic changes are noted with joint space narrowing and downward osteophyte formation. No suspicious bony lesions. Visualized ribs appear intact. Soft tissues: No suspicious soft tissue calcifications. IMPRESSION: Mild to moderate left acromioclavicular joint osteoarthritis. No shoulder fracture or di slocation. No gross soft tissue abnormalities. Reviewed by: Eduardo Montana MD on 12/17/2022 4:23 PM PST Approved by: Eduardo Montana MD on 12/17/2022 4:23 PM PST Station ID: [id number]
== END 2022-12-17 14:03 | disposition home or self-care (01) ==
LOC: DI.S 14:02
PROVIDERS: ATTEND Emergency Medicine
DX: M75.42 Impingement syndrome of left shoulder (principal); M19.012 Primary osteoarthritis, left shoulder

== ENCOUNTER 2023-05-23 10:25 | Outpatient (CLI) | payer MEDICARE, MEDICAID ==
[2023-05-23 18:16] LABS: BASOPHILS % (AUTO) 0.8 %; EOSINOPHILS # (AUTO) 0.1 10^3/uL (0.0-0.7); HCT - HEMATOCRIT 45.1 % (42.0-52.0); HGB - HEMOGLOBIN 15.5 g/dL (14.0-18.0); LYMPHOCYTES # (AUTO) 1.4 10^3/uL (1.5-3.5); LYMPHOCYTES % (AUTO) 36.6 %; MEAN CORPUSCULAR HEMOGLOBIN 27.4 pg (27.0-31.0); MEAN CORPUSCULAR HGB CONC 34.4 g/dL (32.0-36.0); MEAN CORPUSCULAR VOLUME 79.7 fL (80.0-94.0); MONOCYTES # (AUTO) 0.4 10^3/uL (0.0-1.0); MONOCYTES % (AUTO) 11.2 %; NEUTROPHILS # (AUTO) 1.9 10^3/uL (1.5-6.6); NEUTROPHILS % (AUTO) 49.4 %; PLT - PLATELET COUNT 188 10^3/uL (130-450); RED BLOOD COUNT 5.66 10^6/uL (4.70-6.10); RED CELL DISTRIBUTION WIDTH 13.9 % (12.0-15.0); WHITE BLOOD COUNT 3.9 x10^3/uL (4.8-10.8)
[2023-05-23 18:38] LABS: THYROID STIMULATING HORMONE 1.19 uIU/mL (0.34-5.60)
[2023-05-23 19:07] LABS: ALBUMIN 4.2 g/dL (3.2-5.5); ALBUMIN/GLOBULIN RATIO 1.3 (1.0-2.2); ALKALINE PHOSPHATASE 71 IU/L (42-121); ALT ALANINE AMINOTRANSFERASE 12 IU/L (10-60); AST ASPARTATE AMINOTRANSFERASE 17 IU/L (10-42); BUN - BLOOD UREA NITROGEN 14 mg/dL (6-20); CALCIUM 9.2 mg/dL (8.5-10.3); CARBON DIOXIDE - CO2 25 mmol/L (21-32); CHLORIDE 106 mmol/L (101-111); CHOL/HDL RATIO 2.8 (<5.0); CHOLESTEROL 173 mg/dL; CREATININE 1.1 mg/dL (0.6-1.3); GFR - MDRD 81 (>89); GLUCOSE 85 mg/dL (74-104); HDL CHOLESTEROL 62 mg/dL; LDL CHOLESTEROL,CALCULATED 89 mg/dL; LDL/HDL RATIO 1.4 (<3.6); POTASSIUM 3.8 mmol/L (3.5-4.5); SODIUM 137 mmol/L (135-145); TOTAL PROTEIN 7.4 g/dL (6.4-8.9); TRIGLYCERIDES 112 mg/dL (48-352); VLDL CHOLESTEROL 22 mg/dL
== END 2023-05-23 10:26 | disposition home or self-care (01) ==
LOC: LAB.N 10:25
PROVIDERS: ATTEND Registered Nurse
DX: I10 Essential (primary) hypertension (principal); Z13.220 Encounter for screening for lipoid disorders; Z12.5 Encounter for screening for malignant neoplasm of prostate; Z79.899 Other long term (current) drug therapy
CPT/HCPCS: 36415; 80053; 80061; 84443; 85025; G0103; 83721; 84153

== ENCOUNTER 2023-06-02 09:37 | Outpatient (CLI) | payer MEDICARE, MEDICAID ==
--- NOTE | 2023-06-02 12:46 | XRAY Report ---
PROCEDURE: Knee 2 View BILAT INDICATIONS: BILATERAL OSTEOARTHRITIS OF KNEES TECHNIQUE: 2 views each of the right and left knees. COMPARISON: None. FINDINGS: Bones: No acute fractures or dislocations. No suspicious bony lesions. There is severe narrowing of the left medial femorotibial compartment joint space with subchondral sclerosis and marginal osteo phyte formation. Moderate severe narrowing of the right medial and lateral femorotibial compartments and moderate narrowing of the left lateral femorotibial compartment. At least mild narrowing of the b ilateral patellofemoral compartments is seen. Soft tissues: Small left knee joint effusion. No suspicious soft tissue calcifications. IMPRESSION: Bilateral tricompartmental osteoarthrosis, most notable and severe at the left medial femorotibial co mpartment. Reviewed by: Manuelito Yoo MD on 06/02/2023 12:45 PM PDT Approved by: Manuelito Yoo MD on 06/02/2023 12:45 PM PDT Station ID: [id number]
== END 2023-06-02 09:38 | disposition home or self-care (01) ==
LOC: DI 09:37
PROVIDERS: ATTEND Registered Nurse
DX: M17.0 Bilateral primary osteoarthritis of knee (principal)

== ENCOUNTER 2023-06-19 09:38 | Emergency (ER) | payer MEDICARE, MEDICAID ==
--- NOTE | 2023-06-19 10:46 | ED Physician Documentation ---
PD HPI SKIN - Stated complaint Stated Complaint: BODY ITCH - Chief complaint Chief Complaint: General - History obtained from History obtained from: Patient - Additional information Additional information: Patient is a 68-year-old male with a history of hypertension who reports having a rash to his upper back and lower abdomen area for the past 3 weeks that is itchy. He has not taken anything for this. He is unsure of any new exposures such as new medications, fragrances or soaps, animals or foods. Patient denies any respiratory symptoms. Denies being around anyone else with similar symptoms. Review of Systems Constitutional: denies: Fever Cardiac: denies: Chest pain / pressure Respiratory: denies: Dyspnea GI: denies: Abdominal Pain Skin: reports: Rash PD PAST MEDICAL HISTORY - Past Medical History Cardiovascular: Hypertension Respiratory: None Neuro: None Endocrine/Autoimmune: None GI: GERD : Other HEENT: None Psych: None Musculoskeletal: None Derm: None - Past Surgical History Past Surgical History: Yes /RAIL[employer]AY [employer]UNTER: Other (Prostatectomy) - Present Medications Home Medications: Ambulatory Orders Medication Instructions Recorded Confirmed amLODIPine [Norvasc] 10 mg PO DAILY #30 tablet 06/12/21 06/19/23 Meloxicam 15 mg PO DAILY 06/19/23 06/19/23 diphenhydrAMINE [Benadryl] 25 - 50 mg PO Q6H PRN #20 cap 06/19/23 predniSONE [Deltasone] 60 mg PO DAILY 5 Days #15 tablet 06/19/23 - Allergies Allergies/Adverse Reactions: Allergies Allergy/AdvReac Type Severity Reaction Status Date / Time No Known Drug Allergies Allergy Verified 06/23/22 09:49 - Social History Does the pt smoke?: No Smoking Status: Never smoker Does the pt drink ETOH?: Yes Does the pt have substance abuse?: No - Immunizations Immunizations are current?: Yes - POLST Patient has POLST: No POLST Status: Full Code PD ED PE NORMAL - General General: Alert and oriented X 3, No acute distress, Well developed/nourished - HEENT HEENT: Atraumatic, Pharynx benign - Neck Neck: Supple, no meningeal sign - Cardiac Cardiac: RRR, No murmur - Respiratory Respiratory: No respiratory distress, Clear bilaterally - Abdomen Abdomen: Soft, Non tender - Derm Derm: Other (Urticaria to back and lower abdomen; No signs of superimposed cellulitis) - Neuro Neuro: Normal speech Results - Vitals Vitals: Vital Signs - 24 hr 06/19/23 06/19/23 09:44 10:50 Temperature 36.4 C L 36.5 C Heart Rate 74 72 Respiratory 14 15 Rate Blood Pressure 160/84 H 158/89 H O2 Saturation 98 98 Oxygen O2 Source Room air PD Medical Decision Making - ED course ED course: Patient with hives to his trunk presenting for evaluation. Unknown new exposure or inciting factor. No respiratory symptoms. No signs of superimposed infection. Discussed options for treatment to include short course of steroids and Benadryl as needed for itching as well as follow-up with PCP. Patient is agreeable and counseled on concerning symptoms to return for. Departure - Departure Disposition: 01 Home, Self Care Clinical Impression: Rash and nonspecific skin eruption, Hives Condition: Stable Instructions: ED Urticaria Prescriptions: diphenhydrAMINE [Benadryl] 25 - 50 mg PO Q6H PRN #20 cap PRN Reason: Itching predniSONE [Deltasone] 60 mg PO DAILY 5 Days #15 tablet Comments: Your rash appears to be hives which is likely from an allergic reaction. We do not have the ability to do allergy testing here. I am starting you on a short course of steroids to help with this reaction. I would also recommend using Benadryl for the itching and close follow-up with your primary care provider for further evaluation. Please return to the emergency department with any worsening symptoms such as difficulty breathing. I have sent your prescriptions to [facility] in [place]. Forms: PCP List Discharge Date/Time: 06/19/23 10:50
[2023-06-19 11:06] VITALS: BP 158/89; O2SAT 98
== END 2023-06-19 10:50 | disposition home or self-care (01) ==
LOC: ED 09:38
DX: L50.9 Urticaria, unspecified (principal); R21 Rash and other nonspecific skin eruption; I10 Essential (primary) hypertension; Z79.899 Other long term (current) drug therapy
CPT/HCPCS: 99282; 99283

== ENCOUNTER 2023-07-01 08:00 | Outpatient (CLI) | payer MEDICARE, MEDICAID ==
--- NOTE | 2023-07-01 18:34 | XRAY Report ---
PROCEDURE: Knee 2 View BILAT INDICATIONS: BILAT KNEE PAIN, BILAT TUNNEL W/B BILAT SUNRISE TECHNIQUE: 2 views of the knee was obtained. COMPARISON: None FINDINGS: Bones: No fractures or dislocations. No suspicious bony lesions. Medial lateral compartmental joint space narrowing with marginal ossified cysts present. Soft tissues: No knee joint effusion. No suspicious soft tissue calcifications or masses. IMPRESSION: Moderate bilateral osteoarthritis Reviewed by: Dion Grewal MD on 07/01/2023 5:33 PM AKDT Approved by: Dion Grewal MD on 07/01/2023 5:33 PM AKDT Station ID: [id number]
== END 2023-07-01 23:59 | disposition home or self-care (01) ==
LOC: DI.WOS 08:00
PROVIDERS: ATTEND Physician Assistant Surgical
DX: M17.0 Bilateral primary osteoarthritis of knee (principal)

== ENCOUNTER 2023-09-12 08:44 | Day surgery (SDC) | payer MEDICARE, MEDICAID ==
[2023-09-12] MEDS ORDERED: LACTATED RINGERS 1,000 ML IV ONE ×2 (09:17→11:28)
--- NOTE | 2023-09-12 09:48 | ANESTHESIA ---
Pre-Anesthesia VS, & Labs - Diagnosis esophageal cancer - Procedure EGD Vital Signs: Temp Pulse Resp BP Pulse Ox O2 Flow Rate 36.4 C L 64 22 155/96 H 98 09/12/23 09:01 09/12/23 09:01 09/12/23 09:01 09/12/23 09:01 09/12/23 09:01 Height: 6 ft 2 in Weight (kg): 98.5 kg Body Mass Index: 27.8 BMI Classification: Overweight - NPO >8 hours Home Medications and Allergies amlodipine Allergies/Adverse Reactions: Allergies Allergy/AdvReac Type Severity Reaction Status Date / Time No Known Drug Allergies Allergy Verified 06/23/22 09:49 Anes History & Medical History - Anesthetic History Anesthesia Complications: reports: No previous complications - Medical History Cardiovascular: reports: Hypertension Pulmonary: reports: None Gastrointestinal: reports: GERD, Other (esophageal cancer) Urinary: reports: Benign prostate hypertrophy, Other Neuro: reports: None Musculoskeletal: reports: None Endocrine/Autoimmune: reports: None Blood Disorders: reports: None Skin: reports: None Smoking Status: Never smoker Psychosocial: reports: Cannabis History of Cancer?: Yes (s/p chemo and radiation) - Surgical History General: reports: EGD Urologic: reports: Prostatic surgery Gynecologic: reports: Other Exam General: Alert, Oriented x3, Cooperative, No acute distress Dental: Dentures full Upper Mouth Openin Fingerbreadth Neck Mobility: Normal Mallampati classification: II Thyromental Distance: 4-6 cm Mental/Cognitive Status: Alert/Oriented X3, Normal for patient Plan Anesthesia Type: General, Total IV Consent for Procedure(s) Verified and Reviewed: Yes Code Status: Attempt Resuscitation ASA classification: 3-Severe systemic disease Is this case an emergency?: No
[2023-09-12] MEDS ORDERED: PROPOFOL 200 MG/20 ML VIAL IVP ONE (10:01)
[2023-09-12] MEDS ORDERED: LIDOCAINE-MPF 2% 5 ML VIAL ONE (10:01)
[2023-09-12 12:05] VITALS: BP 152/92; O2SAT 97
--- NOTE | 2023-09-12 13:06 | ANESTHESIA POST OP EVALUATION ---
Anesthesia Post Eval - Post Anesthesia Eval Vitals: Last Vital Signs Temp 36.2 C L 09/12/23 11:28 Pulse 63 09/12/23 12:04 Resp 18 09/12/23 12:04 BP 152/92 H 09/12/23 12:04 Pulse Ox 97 09/12/23 12:04 O2 Flow Rate CV Function Including HR & BP: Stable Pain Control: Satisfactory Nausea & Vomiting: Negative Mental Status: Baseline Respiratory Status: Airway Patent Hydration Status: Satisfactory Anesthesia Complications: None
== END 2023-09-12 08:45 | disposition home or self-care (01) ==
LOC: SDS 08:44
PROVIDERS: ATTEND Surgery
PROC: 0DB68ZX Excision of Stomach, Via Natural or Artificial Opening Endoscopic, Diagnostic (ICD-10-PCS; 2023-09-12)
PROC: 0DB38ZX Excision of Lower Esophagus, Via Natural or Artificial Opening Endoscopic, Diagnostic (ICD-10-PCS; principal; 2023-09-12 10:15)
DX: C16.0 Malignant neoplasm of cardia (principal); K21.9 Gastro-esophageal reflux disease without esophagitis; N40.0 Benign prostatic hyperplasia without lower urinary tract symptoms; Z85.01 Personal history of malignant neoplasm of esophagus
CPT/HCPCS: 43239; J7120

== ENCOUNTER 2024-03-08 19:48 | Emergency (ER) | payer MEDICARE, MEDICAID ==
[2024-03-08 20:08] VITALS: O2SAT 97
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
[2024-03-08 23:17] VITALS: BP 109/62
== END 2024-03-08 23:11 | disposition home or self-care (01) ==
LOC: EDUNIT# → ED 19:48
DX: M54.2 Cervicalgia (principal); M54.50 Low back pain, unspecified; R51.9 Headache, unspecified; I10 Essential (primary) hypertension; Z79.899 Other long term (current) drug therapy
CPT/HCPCS: 80053; 83690; 85025; 99284